=== PATIENT | female | born 1935 ===

== ENCOUNTER 2023-10-01 08:44 | Day surgery (SDC) | payer MEDICARE ==
[~2023-10-01] VITALS: Ht 152.4 cm; Wt 51.2 kg
[~2023-10-01 08:44] MED LIST: AMLODIPINE BESY10 MG PO; ATEN50; Balanced Salt Epinephrine Irrigation Solution 500 mL IR SCH; FentaNYL Citrate 50 MCG/ML 2 ML Injection ONE; Lidocaine HCl/Pf 1% 5 ML VIAL XX SCH; Midazolam HCl 1MG / ML 2ML Vial ONE; Moxifloxacin HCL 0.5 MG/0.1 ML 0.4MLSYR RIGHTEYE SCH; NS 500 ML IV ONE; PHENYLEPHRINE\\TROPICAMIDE\\TETRACAINE OPHTHALMIC DILATING SOLN RIGHTEYE PRN; Povidone-Iodine 450 DROP/30 ML Solution RIGHTEYE SCH; REMERON1510 PO
--- NOTE | 2023-10-01 09:00 | NUR ---
10/01/23 0900 Frieda Richmond AT [id number] [address]EDGET AT 0835
[2023-10-01] MEDS ORDERED: NS 500 ML IV ONE (09:04)
[2023-10-01] MEDS ORDERED: Ondansetron HCl 2 MG / ML 2ML Vial ONE (09:24)
[2023-10-01] MEDS ORDERED: AcetaZOLAMIDE Sodium 500 MG Vial ONE (10:10)
[2023-10-01] MEDS ORDERED: FentaNYL Citrate 50 MCG/ML 2 ML Injection ONE (10:23)
[2023-10-01 11:01] VITALS: BP 122/54
--- NOTE | 2023-10-01 11:07 | NUR ---
10/01/[address] IN SPEAKING WITH PT AND DAUGHTER. DISCUSSING PROCEDURE
== END 2023-10-01 11:20 | disposition home or self-care (01) ==
LOC: ORSCSDS 08:44
PROVIDERS: Student in an Organized Health Care Education/Training Program
PROC: 08B43ZZ Excision of Right Vitreous, Percutaneous Approach (ICD-10-PCS; principal; 2023-10-01 10:00)
PROC: 08RJ3JZ Replacement of Right Lens with Synthetic Substitute, Percutaneous Approach (ICD-10-PCS; principal; 2023-10-01 10:00)
DX: H25.811 Combined forms of age-related cataract, right eye (principal); Z96.1 Presence of intraocular lens; I10 Essential (primary) hypertension; Z79.899 Other long term (current) drug therapy
CPT/HCPCS: J1120; J2250; J2405; J3010; J7040; V2630; V2632